=== PATIENT | female | born 1940 | race Caucasian/White ===

== ENCOUNTER 2021-08-10 18:21 | Inpatient (IN) | payer MEDICARE, BC ==
[2021-08-10] MEDS ORDERED: Calcium Carbonate 500 MG ChewTAB PO PRN (20:21)
[2021-08-10] MEDS ORDERED: Dextrose 50% Abboject 50 ML SYRINGE SLOW IVP PRN (20:21)
[2021-08-10] MEDS ORDERED: Ondansetron PF 4 MG/2 ML Vial IVP PRN (20:21)
[2021-08-10] MEDS ORDERED: Dextrose 5% in Water 1,000 ML IV PRN (20:21)
[2021-08-10] MEDS ORDERED: Atropine Sulfate 0.4 mg/1 ml Vial IVP PRN (20:28)
[2021-08-10 21:11] VITALS: BMI 21.4
[2021-08-10 21:15] LABS: Lactic Acid 1.4 mmol/L (0.5-2.2)
[2021-08-10 21:40] LABS: CKMB 1.5 ng/mL (0-6.6)
[2021-08-10] MEDS ORDERED: Mirtazapine 15 MG TAB PO SCH (22:00)
[2021-08-10] MEDS ORDERED: Atorvastatin Calcium 40 MG TAB PO SCH (22:00)
[2021-08-10] MEDS ORDERED: Sodium Chloride 0.9% 1,000 ML IV SCH (22:00)
[2021-08-10] MEDS: HumaLOG 300 UNITS/3 ML VIAL SC PRN (22:30)
[2021-08-11 04:35] LABS: #Monocytes 1.3 10x3/uL (0.0-1.1); #Neutrophils 8.6 10x3/uL (1.5-8.4); %Basophils 0.2 % (0.0-2.0); %Eosinophils 0.4 % (0.0-6.0); %Lymphocytes 12.4 % (18.0-47.0); %Neutrophils 75.6 % (40.0-75.0); Hemoglobin 9.9 g/dL (12.0-15.5); Mean Corpuscular HGB CONC 32.6 g/dL (32.0-36.0); Mean Corpuscular Hemoglobin 27.3 pg (27.0-33.0); Mean Platelet Volume 9.5 fl (7.4-10.4); Platelet Count 302 10x3/uL (150-450); RBC Distribution Width 13.7 % (11.5-14.5); Red Blood Cell (RBC) Count 3.62 10x6/uL (3.90-5.03); White Blood Cell (WBC) Count 11.4 10x3/uL (3.5-10.5)
[2021-08-11 04:41] LABS: Anion Gap 14 mmol/L (10-20); BUN (Urea Nitrogen) 10 mg/dL (9.8-20.1); Calc. Creatinine Clearance 54 mL/min (70-130); Calcium 8.6 mg/dL (7.8-10.44); Carbon Dioxide 23 mmol/L (23-31); Chloride 102 mmol/L (98-107); Glucose 133 mg/dL (83-110); Potassium 3.7 mmol/L (3.5-5.1); Sodium 135 mmol/L (136-145)
[2021-08-11 05:03] LABS: CKMB 1.3 ng/mL (0-6.6)
[2021-08-11] MEDS ORDERED: Levothyroxine Sodium 50 MCG TAB PO SCH (06:00)
[2021-08-11] MEDS: Mometasone/Formoterol 200/5 60 PUFF INH SCH ×2 (06:35→20:40)
[2021-08-11] MEDS ORDERED: metFORMIN 500 MG TAB PO SCH (08:00)
[2021-08-11] MEDS ORDERED: Polyethylene Glycol 3350 17 GM Packet PO SCH (09:00)
[2021-08-11] MEDS: Enoxaparin Sodium 40 MG/0.4 ML SYRINGE SC SCH (09:31)
[2021-08-11] MEDS: Aspirin 81 mg Enteric Coated Tablet PO SCH (09:32)
[2021-08-11] MEDS: Sotalol HCl 80 MG TAB PO SCH ×2 (09:32→20:20)
[2021-08-11] MEDS: Polyethylene Glycol 3350 17 GM Packet PO SCH (09:33)
[2021-08-11] MEDS: Pioglitazone HCl 15 MG TAB PO SCH (09:33)
[2021-08-11] MEDS ORDERED: Potassium Chloride 20 MEQ TAB PO SCH (12:00)
[2021-08-11 12:50] LABS: Iron 24 ug/dL (50-170); Iron Binding Capacity, Total 323 mcg/dL (265-497)
[2021-08-11 13:38] LABS: Ferritin 84.87 ng/mL (10-291); Free T4 (Free Thyroxine) 1.07 ng/dL (0.70-1.48)
[2021-08-11] MEDS ORDERED: Iron Sucrose Complex 100 MG in Sodium Chloride 0.9% 100 ML IVPB SCH (14:30)
[2021-08-11] MEDS ORDERED: Iron, Sodium Ferric Gluconate 125 MG in Sodium Chloride 0.9% 100 ML IVPB SCH (14:45)
[2021-08-11] MEDS: Atorvastatin Calcium 40 MG TAB PO SCH (20:20)
[2021-08-11 20:58] LABS: T4 7.2 ug/dL (4.87-11.72)
[2021-08-11] MEDS ORDERED: Mirtazapine 15 MG TAB PO SCH ×2 (21:00)
[2021-08-11] MEDS ORDERED: Atropine Sulfate 0.4 mg/1 ml Vial IVP SCH (21:00)
[2021-08-12 05:54] LABS: Anion Gap 15 mmol/L (10-20); BUN (Urea Nitrogen) 11 mg/dL (9.8-20.1); Calc. Creatinine Clearance 53 mL/min (70-130); Calcium 8.5 mg/dL (7.8-10.44); Carbon Dioxide 21 mmol/L (23-31); Chloride 104 mmol/L (98-107); Glucose 150 mg/dL (83-110); Potassium 4.7 mmol/L (3.5-5.1); Sodium 135 mmol/L (136-145)
[2021-08-12] MEDS ORDERED: Levothyroxine Sodium 50 MCG TAB PO SCH (06:00)
[2021-08-12] MEDS: Mometasone/Formoterol 200/5 60 PUFF INH SCH ×2 (06:02→19:20)
[2021-08-12] MEDS ORDERED: methylPREDNISolone Sod Succ 40 MG VIAL IVP SCH (09:00)
[2021-08-12] MEDS: Aspirin 81 mg Enteric Coated Tablet PO SCH (09:16)
[2021-08-12] MEDS: Sotalol HCl 80 MG TAB PO SCH (09:17)
[2021-08-12] MEDS: Pioglitazone HCl 15 MG TAB PO SCH (09:20)
[2021-08-12] MEDS: Polyethylene Glycol 3350 17 GM Packet PO SCH (09:31)
[2021-08-12] MEDS: Enoxaparin Sodium 40 MG/0.4 ML SYRINGE SC SCH (09:38)
[2021-08-12 12:06] LABS: #Basophils 0.1 10x3/uL (0.0-0.2); #Monocytes 0.9 10x3/uL (0.0-1.1); %Basophils 0.4 % (0.0-2.0); %Eosinophils 0.2 % (0.0-6.0); %Monocytes 6.7 % (0.0-10.0); %Neutrophils 78.1 % (40.0-75.0); Hemoglobin 11.4 g/dL (12.0-15.5); Mean Corpuscular HGB CONC 31.9 g/dL (32.0-36.0); Mean Corpuscular Hemoglobin 27.4 pg (27.0-33.0); Mean Corpuscular Volume 85.8 fl (81.6-98.3); Mean Platelet Volume 10.4 fl (7.4-10.4); Platelet Count 379 10x3/uL (150-450); RBC Distribution Width 14.3 % (11.5-14.5); Red Blood Cell (RBC) Count 4.16 10x6/uL (3.90-5.03); White Blood Cell (WBC) Count 12.8 10x3/uL (3.5-10.5)
[2021-08-12 12:16] LABS: INR-International Normal Ratio 1.1; PTT 23.9 sec (22.0-33.0)
[2021-08-12 12:29] LABS: ALT (SGPT) 93 U/L (8-55); AST (SGOT) 73 U/L (5-34); Albumin 3.6 g/dL (3.4-4.8); Alkaline Phosphatase 174 U/L (40-110); Anion Gap 18 mmol/L (10-20); BUN (Urea Nitrogen) 12 mg/dL (9.8-20.1); Bilirubin, Total 0.8 mg/dL (0.2-1.2); Calc. Creatinine Clearance 50 mL/min (70-130); Calcium 9.5 mg/dL (7.8-10.44); Carbon Dioxide 20 mmol/L (23-31); Chloride 102 mmol/L (98-107); Globulin 3.3 g/dL (2.4-3.5); Glucose 192 mg/dL (83-110); Magnesium 1.7 mg/dL (1.6-2.6); Phosphorus 3.6 mg/dL (2.3-4.7); Potassium 4.7 mmol/L (3.5-5.1); Protein, Total 6.9 g/dL (5.8-8.1); Sodium 135 mmol/L (136-145)
[2021-08-12 14:25] LABS: Magnesium 1.6 mg/dL (1.6-2.6)
[2021-08-12] MEDS ORDERED: Magnesium 2 GM/50 ML 2 GM in Premix Bag 1 BAG IVPB SCH (18:30)
[2021-08-12 19:22] LABS: CKMB 2.3 ng/mL (0-6.6); Troponin I 0.012 ng/mL (< 0.028)
[2021-08-12] MEDS: Atorvastatin Calcium 40 MG TAB PO SCH (20:39)
[2021-08-12] MEDS ORDERED: Benzonatate 100 MG CAP PO SCH (20:45)
[2021-08-12] MEDS: Acetaminophen 325 MG TAB PO PRN (21:25)
[2021-08-13 01:00] LABS: CKMB 2.6 ng/mL (0-6.6); Troponin I 0.014 ng/mL (< 0.028)
[2021-08-13 06:20] LABS: Magnesium 2.1 mg/dL (1.6-2.6)
[2021-08-13] MEDS: Mometasone/Formoterol 200/5 60 PUFF INH SCH ×2 (06:44→19:20)
[2021-08-13 07:53] LABS: CKMB 2.7 ng/mL (0-6.6); Troponin I 0.013 ng/mL (< 0.028)
[2021-08-13] MEDS ORDERED: Carvedilol 3.125 MG TAB PO SCH ×3 (09:45→17:00)
[2021-08-13 10:22] LABS: Anion Gap 22 mmol/L (10-20); BUN (Urea Nitrogen) 13 mg/dL (9.8-20.1); Calc. Creatinine Clearance 63 mL/min (70-130); Calcium 8.7 mg/dL (7.8-10.44); Carbon Dioxide 14 mmol/L (23-31); Chloride 100 mmol/L (98-107); Glucose 175 mg/dL (83-110); Magnesium 2.6 mg/dL (1.6-2.6); Potassium 4.2 mmol/L (3.5-5.1); Sodium 132 mmol/L (136-145)
[2021-08-13] MEDS: Enoxaparin Sodium 40 MG/0.4 ML SYRINGE SC SCH (10:28)
[2021-08-13] MEDS: Aspirin 81 mg Enteric Coated Tablet PO SCH ×2 (10:28→12:26)
[2021-08-13] MEDS: Pioglitazone HCl 15 MG TAB PO SCH ×2 (10:28→12:26)
[2021-08-13] MEDS: Polyethylene Glycol 3350 17 GM Packet PO SCH (12:22)
[2021-08-13] MEDS: Acetaminophen 325 MG TAB PO PRN ×2 (14:00→20:52)
[2021-08-13] MEDS ORDERED: Benzonatate 100 MG CAP PO PRN (19:48)
[2021-08-13] MEDS: Carvedilol 3.125 MG TAB PO SCH (20:53)
[2021-08-13] MEDS: Atorvastatin Calcium 40 MG TAB PO SCH (20:53)
[2021-08-14] MEDS: Carvedilol 3.125 MG TAB PO SCH (06:33)
[2021-08-14] MEDS: Aspirin 81 mg Enteric Coated Tablet PO SCH (06:33)
[2021-08-14] MEDS: Mometasone/Formoterol 200/5 60 PUFF INH SCH ×2 (07:05→19:12)
[2021-08-14] MEDS ORDERED: Heparin 10,000 UNITS/ 10 ML VIAL ONE (08:22)
[2021-08-14] MEDS ORDERED: Nitroglycerin 50 MG/250 ML BOT 250 ML ONE (08:22)
[2021-08-14] MEDS ORDERED: Adenosine 6 MG/2 ML VIAL ONE (08:22)
[2021-08-14] MEDS ORDERED: Sodium Chloride 0.9% 1,000 ML ONE (08:23)
[2021-08-14] MEDS ORDERED: Lidocaine 1% (PF) 30 ML VIAL ONE (10:19)
[2021-08-14] MEDS ORDERED: Fentanyl 100 MCG/2 ML VIAL ONE (10:24)
[2021-08-14] MEDS ORDERED: Midazolam HCl 2 mg/2 ml Vial ONE (10:25)
[2021-08-14] MEDS: Enoxaparin Sodium 40 MG/0.4 ML SYRINGE SC SCH (10:28)
[2021-08-14] MEDS ORDERED: Metoprolol Tartrate 5 MG/5 ML VIAL ONE ×2 (10:31→11:52)
[2021-08-14] MEDS: Polyethylene Glycol 3350 17 GM Packet PO SCH (10:37)
[2021-08-14] MEDS: Pioglitazone HCl 15 MG TAB PO SCH (10:37)
[2021-08-14] MEDS ORDERED: Sodium Chloride 0.9% 200 ML IV PRN (10:46)
[2021-08-14] MEDS ORDERED: Nitroglycerin 0.4 MG TAB (25 Tab Bottle) SL PRN (10:46)
[2021-08-14] MEDS ORDERED: Acetaminophen/Codeine 30-300mg Tablet PO PRN ×3 (10:46→10:55)
[2021-08-14] MEDS: Acetaminophen/Codeine 30-300mg Tablet PO PRN ×2 (13:30→20:55)
[2021-08-14] MEDS ORDERED: Carvedilol 6.25 MG TAB PO SCH (14:00)
[2021-08-14] MEDS: Benzonatate 100 MG CAP PO SCH ×2 (18:00→22:42)
[2021-08-14] MEDS: Atorvastatin Calcium 40 MG TAB PO SCH (20:57)
[2021-08-14] MEDS: Carvedilol 6.25 MG TAB PO SCH (20:57)
[2021-08-15 05:55] LABS: Hemoglobin 11.3 g/dL (12.0-15.5); Mean Corpuscular Hemoglobin 27.2 pg (27.0-33.0); Mean Corpuscular Volume 84.9 fl (81.6-98.3); Mean Platelet Volume 9.2 fl (7.4-10.4); Platelet Count 361 10x3/uL (150-450); RBC Distribution Width 14.5 % (11.5-14.5); Red Blood Cell (RBC) Count 4.16 10x6/uL (3.90-5.03); White Blood Cell (WBC) Count 8.4 10x3/uL (3.5-10.5)
[2021-08-15 06:05] LABS: Anion Gap 14 mmol/L (10-20); BUN (Urea Nitrogen) 15 mg/dL (9.8-20.1); Calc. Creatinine Clearance 53 mL/min (70-130); Calcium 9.1 mg/dL (7.8-10.44); Carbon Dioxide 26 mmol/L (23-31); Chloride 101 mmol/L (98-107); Glucose 147 mg/dL (83-110); Magnesium 1.7 mg/dL (1.6-2.6); Potassium 4.1 mmol/L (3.5-5.1); Sodium 137 mmol/L (136-145)
[2021-08-15] MEDS: Aspirin 81 mg Enteric Coated Tablet PO SCH (06:26)
[2021-08-15] MEDS: Carvedilol 6.25 MG TAB PO SCH (06:26)
[2021-08-15] MEDS: Benzonatate 100 MG CAP PO SCH ×3 (06:26→21:57)
[2021-08-15] MEDS: Mometasone/Formoterol 200/5 60 PUFF INH SCH ×2 (06:45→18:50)
[2021-08-15] MEDS: Polyethylene Glycol 3350 17 GM Packet PO SCH (07:43)
[2021-08-15] MEDS: Enoxaparin Sodium 40 MG/0.4 ML SYRINGE SC SCH (07:43)
[2021-08-15] MEDS ORDERED: Gentamicin 80 MG/2 ML VIAL ONE ×2 (10:06→11:14)
[2021-08-15] MEDS ORDERED: Fentanyl 100 MCG/2 ML VIAL ONE (10:06)
[2021-08-15] MEDS ORDERED: CEFAZOLIN 1 GM VIAL ONE ×2 (10:07)
[2021-08-15] MEDS ORDERED: Midazolam HCl 2 mg/2 ml Vial ONE (10:08)
[2021-08-15] MEDS ORDERED: Lidocaine 1% (PF) 30 ML VIAL ONE (10:42)
[2021-08-15] MEDS ORDERED: Magnesium 2 GM/50 ML 2 GM in Premix Bag 1 BAG IVPB SCH (11:00)
[2021-08-15] MEDS ORDERED: Erythromycin Base 250 MG TAB PO SCH (13:00)
[2021-08-15] MEDS: Carvedilol 12.5 MG TAB PO SCH (16:26)
[2021-08-15] MEDS: Acetaminophen/Codeine 30-300mg Tablet PO PRN ×2 (18:02→22:15)
[2021-08-15] MEDS: Atorvastatin Calcium 40 MG TAB PO SCH (21:57)
[2021-08-16 05:47] LABS: Anion Gap 14 mmol/L (10-20); BUN (Urea Nitrogen) 12 mg/dL (9.8-20.1); Calc. Creatinine Clearance 55 mL/min (70-130); Carbon Dioxide 25 mmol/L (23-31); Chloride 101 mmol/L (98-107); Glucose 146 mg/dL (83-110); Sodium 136 mmol/L (136-145)
[2021-08-16] MEDS: Mometasone/Formoterol 200/5 60 PUFF INH SCH ×2 (06:40→19:03)
[2021-08-16] MEDS ORDERED: Azithromycin 250 MG TAB PO SCH (09:00)
[2021-08-16] MEDS: Aspirin 81 mg Enteric Coated Tablet PO SCH (09:19)
[2021-08-16] MEDS: Carvedilol 12.5 MG TAB PO SCH (09:19)
[2021-08-16] MEDS: Polyethylene Glycol 3350 17 GM Packet PO SCH (09:19)
[2021-08-16] MEDS: Benzonatate 100 MG CAP PO SCH ×3 (09:20→21:38)
[2021-08-16] MEDS: Enoxaparin Sodium 40 MG/0.4 ML SYRINGE SC SCH (09:20)
[2021-08-16] MEDS ORDERED: Metoprolol Tartrate 5 MG/5 ML VIAL IVP SCH ×2 (10:00→15:45)
[2021-08-16] MEDS ORDERED: Lisinopril 5 MG TAB PO SCH (10:00)
[2021-08-16] MEDS ORDERED: Ondansetron PF 4 MG/2 ML Vial IVP PRN (10:27)
[2021-08-16] MEDS: Senokot S 8.6-50 MG TAB PO PRN (11:36)
[2021-08-16] MEDS ORDERED: Fleet Enema 133 ML BOT PR SCH (13:00)
[2021-08-16] MEDS ORDERED: Fleet Enema 133 ML BOT ONE ×2 (13:22)
[2021-08-16] MEDS: Clindamycin 150 MG CAP PO SCH ×2 (13:27→15:45)
[2021-08-16] MEDS ORDERED: Digoxin 0.5 MG/2 ML AMP SLOW IVP SCH ×3 (17:00→21:30)
[2021-08-16] MEDS: Carvedilol 25 MG TAB PO SCH (18:11)
[2021-08-16] MEDS: Atorvastatin Calcium 40 MG TAB PO SCH (21:37)
[2021-08-17] MEDS: Levothyroxine Sodium 25 MCG TAB PO SCH (05:52)
[2021-08-17] MEDS: Mometasone/Formoterol 200/5 60 PUFF INH SCH ×2 (06:45→19:13)
[2021-08-17] MEDS ORDERED: Lidocaine 2% MPF 10 ML AMP (For Epidural Use) ONE (09:24)
[2021-08-17] MEDS ORDERED: PROPOFOL 20 ML ONE (09:24)
[2021-08-17] MEDS ORDERED: PHENYLEPHRINE-NS 100 MCG/ML 10 ML SYRINGE ONE (09:47)
[2021-08-17] MEDS: Polyethylene Glycol 3350 17 GM Packet PO SCH ×2 (10:20→11:25)
[2021-08-17] MEDS: Enoxaparin Sodium 40 MG/0.4 ML SYRINGE SC SCH (10:20)
[2021-08-17] MEDS: Carvedilol 25 MG TAB PO SCH ×2 (10:21→16:15)
[2021-08-17] MEDS: Lisinopril 5 MG TAB PO SCH (10:21)
[2021-08-17] MEDS: Benzonatate 100 MG CAP PO SCH ×3 (10:21→21:10)
[2021-08-17] MEDS: Aspirin 81 mg Enteric Coated Tablet PO SCH (10:21)
[2021-08-17] MEDS: HumaLOG 300 UNITS/3 ML VIAL SC PRN (18:02)
[2021-08-17] MEDS: Atorvastatin Calcium 40 MG TAB PO SCH (21:10)
[2021-08-18] MEDS: Levothyroxine Sodium 25 MCG TAB PO SCH (05:31)
[2021-08-18] MEDS: Mometasone/Formoterol 200/5 60 PUFF INH SCH ×2 (08:12→18:57)
[2021-08-18] MEDS: Benzonatate 100 MG CAP PO SCH ×2 (08:51→08:59)
[2021-08-18] MEDS: Lisinopril 5 MG TAB PO SCH (08:51)
[2021-08-18] MEDS: Aspirin 81 mg Enteric Coated Tablet PO SCH (08:52)
[2021-08-18] MEDS: Carvedilol 25 MG TAB PO SCH ×2 (08:52→16:02)
[2021-08-18] MEDS: Polyethylene Glycol 3350 17 GM Packet PO SCH (08:53)
[2021-08-18] MEDS: Enoxaparin Sodium 40 MG/0.4 ML SYRINGE SC SCH (08:53)
[2021-08-18] MEDS: HumaLOG 300 UNITS/3 ML VIAL SC PRN (12:07)
[2021-08-18] MEDS ORDERED: EPOETIN ALFA-EPBX (NON-ESRD) 10,000 UNIT/ML VIAL SC SCH (13:00)
[2021-08-18] MEDS: Clindamycin 150 MG CAP PO SCH (16:02)
[2021-08-18] MEDS: Atorvastatin Calcium 40 MG TAB PO SCH (19:35)
[2021-08-18] MEDS ORDERED: Donepezil HCl 5 MG TAB PO SCH (21:00)
[2021-08-18] MEDS: Senokot S 8.6-50 MG TAB PO PRN (22:03)
[2021-08-19] MEDS: Clindamycin 150 MG CAP PO SCH ×3 (00:30→14:51)
[2021-08-19] MEDS: Senokot S 8.6-50 MG TAB PO PRN (06:08)
[2021-08-19] MEDS: Levothyroxine Sodium 25 MCG TAB PO SCH (06:08)
[2021-08-19] MEDS ORDERED: Ferrous Gluconate 324 MG TAB PO SCH (08:00)
[2021-08-19] MEDS: Mometasone/Formoterol 200/5 60 PUFF INH SCH ×2 (08:54→19:26)
[2021-08-19] MEDS: Carvedilol 25 MG TAB PO SCH ×2 (09:15→19:00)
[2021-08-19] MEDS: Aspirin 81 mg Enteric Coated Tablet PO SCH (09:15)
[2021-08-19] MEDS: Enoxaparin Sodium 40 MG/0.4 ML SYRINGE SC SCH (09:16)
[2021-08-19] MEDS: Polyethylene Glycol 3350 17 GM Packet PO SCH (09:16)
[2021-08-19] MEDS: Lisinopril 5 MG TAB PO SCH (09:16)
[2021-08-19] MEDS: HumaLOG 300 UNITS/3 ML VIAL SC PRN (12:21)
[2021-08-19 13:26] LABS: Bilirubin Neg (Negative); Blood, Urine 250 (Negative); Clarity Slightly Cloudy (Clear); Glucose, Urine (Dipstick) >=1000 mg/dL (Negative); Ketone, Urine 5 mg/dL (Negative); Leukocyte 25 (Negative); Nitrite Negative (Negative); Protein, Urine (Dipstick) 30 mg/dl (Neg-Trace); Urobilinogen Normal mg/dL (Less than 2)
[2021-08-19 13:28] LABS: Urine Culture Reflex No No
[2021-08-19 13:55] LABS: Bacteria/HPF None Seen HPF (None Seen); RBC/HPF Greater than 50 HPF (0-3); Squamous Epithelial 0-3 HPF (0-3); WBC/HPF 0-3 HPF (0-3)
[2021-08-19 15:23] LABS: ALT (SGPT) 49 U/L (8-55); AST (SGOT) 39 U/L (5-34); Albumin 3.2 g/dL (3.4-4.8); Alkaline Phosphatase 123 U/L (40-110); Anion Gap 13 mmol/L (10-20); BUN (Urea Nitrogen) 10 mg/dL (9.8-20.1); Bilirubin, Total 0.6 mg/dL (0.2-1.2); Calc. Creatinine Clearance 67 mL/min (70-130); Calcium 8.4 mg/dL (7.8-10.44); Carbon Dioxide 29 mmol/L (23-31); Chloride 94 mmol/L (98-107); Globulin 2.6 g/dL (2.4-3.5); Glucose 130 mg/dL (83-110); Magnesium 1.7 mg/dL (1.6-2.6); Potassium 3.2 mmol/L (3.5-5.1); Protein, Total 5.8 g/dL (5.8-8.1); Sodium 133 mmol/L (136-145)
[2021-08-19 15:51] LABS: Phosphorus 1.9 mg/dL (2.3-4.7)
[2021-08-19] MEDS ORDERED: Potassium Chloride 20 MEQ in Premix Bag 1 BAG IVPB SCH ×2 (18:15→23:30)
[2021-08-19] MEDS: Clindamycin/D5W 600 MG in Premix Bag 1 BAG IVPB SCH (19:29)
[2021-08-19] MEDS: Sodium Chloride 0.9% 1,000 ML IV SCH (19:30)
[2021-08-19] MEDS: Atorvastatin Calcium 40 MG TAB PO SCH (20:08)
[2021-08-19] MEDS ORDERED: Potassium Phosphate 15 MMOL in Sodium Chloride 0.9% 250 ML 250 ML IVPB SCH (21:00)
[2021-08-20] MEDS: Clindamycin/D5W 600 MG in Premix Bag 1 BAG IVPB SCH ×3 (01:17→13:46)
[2021-08-20 04:31] LABS: Anion Gap 14 mmol/L (10-20); BUN (Urea Nitrogen) 6 mg/dL (9.8-20.1); Calc. Creatinine Clearance 68 mL/min (70-130); Calcium 8.3 mg/dL (7.8-10.44); Carbon Dioxide 29 mmol/L (23-31); Chloride 94 mmol/L (98-107); Glucose 131 mg/dL (83-110); Magnesium 1.7 mg/dL (1.6-2.6); Phosphorus 2.7 mg/dL (2.3-4.7); Potassium 3.1 mmol/L (3.5-5.1); Sodium 134 mmol/L (136-145)
[2021-08-20] MEDS: Levothyroxine Sodium 25 MCG TAB PO SCH (05:14)
[2021-08-20] MEDS: Mometasone/Formoterol 200/5 60 PUFF INH SCH ×2 (06:45→19:20)
[2021-08-20] MEDS ORDERED: Lorazepam 2 MG/ML VIAL SLOW IVP PRN (07:19)
[2021-08-20] MEDS ORDERED: Potassium Chloride 20 MEQ in Premix Bag 1 BAG IVPB SCH ×2 (08:00→13:30)
[2021-08-20] MEDS ORDERED: Magnesium 2 GM/50 ML 2 GM in Premix Bag 1 BAG IVPB SCH (08:00)
[2021-08-20] MEDS ORDERED: Lisinopril 10 MG TAB PO SCH (09:30)
[2021-08-20] MEDS: Polyethylene Glycol 3350 17 GM Packet PO SCH (10:43)
[2021-08-20] MEDS: Enoxaparin Sodium 40 MG/0.4 ML SYRINGE SC SCH (10:43)
[2021-08-20] MEDS: Carvedilol 25 MG TAB PO SCH ×2 (10:43→17:41)
[2021-08-20] MEDS: Pantoprazole 40 MG VIAL IVP SCH (10:46)
[2021-08-20] MEDS: Lisinopril 5 MG TAB PO SCH (11:43)
[2021-08-20] MEDS: Aspirin 81 mg Enteric Coated Tablet PO SCH (11:44)
[2021-08-20] MEDS: Lisinopril 10 MG TAB PO SCH (20:29)
[2021-08-20] MEDS: Atorvastatin Calcium 40 MG TAB PO SCH (20:29)
[2021-08-21] MEDS: Sodium Chloride 0.9% 1,000 ML IV SCH ×3 (00:45→21:06)
[2021-08-21] MEDS: Clindamycin/D5W 600 MG in Premix Bag 1 BAG IVPB SCH ×5 (00:46→21:07)
[2021-08-21] MEDS: Mometasone/Formoterol 200/5 60 PUFF INH SCH ×2 (06:34→19:04)
[2021-08-21] MEDS: Levothyroxine Sodium 25 MCG TAB PO SCH (06:52)
[2021-08-21 08:24] LABS: #Eosinphils 0.2 10x3/uL (0.0-0.5); #Monocytes 1.1 10x3/uL (0.0-1.1); #Neutrophils 8.1 10x3/uL (1.5-8.4); %Basophils 0.3 % (0.0-2.0); %Eosinophils 1.9 % (0.0-6.0); %Lymphocytes 11.2 % (18.0-47.0); %Monocytes 10.6 % (0.0-10.0); %Neutrophils 75.4 % (40.0-75.0); Hemoglobin 11.7 g/dL (12.0-15.5); Mean Corpuscular HGB CONC 32.3 g/dL (32.0-36.0); Mean Corpuscular Hemoglobin 27.4 pg (27.0-33.0); Mean Corpuscular Volume 84.8 fl (81.6-98.3); Mean Platelet Volume 9.5 fl (7.4-10.4); Platelet Count 248 10x3/uL (150-450); RBC Distribution Width 14.7 % (11.5-14.5); Red Blood Cell (RBC) Count 4.27 10x6/uL (3.90-5.03); White Blood Cell (WBC) Count 10.8 10x3/uL (3.5-10.5)
[2021-08-21 08:27] LABS: INR-International Normal Ratio 1.2; PTT 24.2 sec (22.0-33.0); Prothrombin Time 13.5 sec (9.5-12.1)
[2021-08-21 08:30] LABS: Anion Gap 15 mmol/L (10-20); BUN (Urea Nitrogen) 6 mg/dL (9.8-20.1); Calc. Creatinine Clearance 62 mL/min (70-130); Carbon Dioxide 26 mmol/L (23-31); Chloride 96 mmol/L (98-107); Glucose 118 mg/dL (83-110); Phosphorus 2.7 mg/dL (2.3-4.7); Sodium 134 mmol/L (136-145)
[2021-08-21 08:47] LABS: Potassium 2.9 mmol/L (3.5-5.1)
[2021-08-21] MEDS: Digoxin 0.125 MG TAB PO SCH (09:30)
[2021-08-21] MEDS: Enoxaparin Sodium 40 MG/0.4 ML SYRINGE SC SCH (09:30)
[2021-08-21] MEDS: Aspirin Chewable 81 MG TAB PO SCH (09:31)
[2021-08-21] MEDS: Polyethylene Glycol 3350 17 GM Packet PO SCH (09:31)
[2021-08-21] MEDS: Pantoprazole 40 MG VIAL IVP SCH (09:31)
[2021-08-21] MEDS: Carvedilol 25 MG TAB PO SCH ×2 (09:31→16:39)
[2021-08-21] MEDS: Lisinopril 10 MG TAB PO SCH ×2 (09:39→21:50)
[2021-08-21] MEDS: Potassium Chloride 20 MEQ in Premix Bag 1 BAG IVPB SCH ×4 (10:00→23:23)
[2021-08-21] MEDS ORDERED: Potassium Chloride 40 MEQ in Premix Bag 1 BAG IVPB SCH (10:00)
[2021-08-21] MEDS: Bisacodyl 10 MG SUPP PR SCH ×2 (10:00→21:51)
[2021-08-21] MEDS ORDERED: Chloraseptic Spray 180 ml Bottle PO PRN (14:17)
[2021-08-21 19:32] LABS: Anion Gap 15 mmol/L (10-20); BUN (Urea Nitrogen) 8 mg/dL (9.8-20.1); Calc. Creatinine Clearance 66 mL/min (70-130); Carbon Dioxide 25 mmol/L (23-31); Chloride 97 mmol/L (98-107); Glucose 126 mg/dL (83-110); Potassium 3.3 mmol/L (3.5-5.1); Sodium 134 mmol/L (136-145)
[2021-08-21] MEDS: Atorvastatin Calcium 40 MG TAB PO SCH (21:49)
[2021-08-22] MEDS: Clindamycin/D5W 600 MG in Premix Bag 1 BAG IVPB SCH ×2 (01:15→06:42)
[2021-08-22] MEDS: Potassium Chloride 20 MEQ in Premix Bag 1 BAG IVPB SCH (01:40)
[2021-08-22 05:03] LABS: Anion Gap 13 mmol/L (10-20); BUN (Urea Nitrogen) 7 mg/dL (9.8-20.1); Calc. Creatinine Clearance 64 mL/min (70-130); Calcium 7.9 mg/dL (7.8-10.44); Carbon Dioxide 25 mmol/L (23-31); Chloride 100 mmol/L (98-107); Glucose 108 mg/dL (83-110); Magnesium 1.6 mg/dL (1.6-2.6); Potassium 3.6 mmol/L (3.5-5.1); Sodium 134 mmol/L (136-145)
[2021-08-22] MEDS: Mometasone/Formoterol 200/5 60 PUFF INH SCH ×2 (06:05→18:42)
[2021-08-22] MEDS: Levothyroxine Sodium 25 MCG TAB PO SCH (06:13)
[2021-08-22] MEDS ORDERED: Magnesium 2 GM/50 ML 2 GM in Sodium Chloride 0.9% 100 ML IVPB SCH (08:00)
[2021-08-22] MEDS: Carvedilol 25 MG TAB PO SCH ×2 (09:00→17:32)
[2021-08-22] MEDS: Digoxin 0.125 MG TAB PO SCH (09:10)
[2021-08-22] MEDS: Enoxaparin Sodium 40 MG/0.4 ML SYRINGE SC SCH (09:12)
[2021-08-22] MEDS: Pantoprazole 40 MG VIAL IVP SCH (09:12)
[2021-08-22] MEDS: Lisinopril 10 MG TAB PO SCH ×2 (09:15→21:00)
[2021-08-22] MEDS: Aspirin Chewable 81 MG TAB PO SCH (09:15)
[2021-08-22] MEDS: Bisacodyl 10 MG SUPP PR SCH ×3 (09:15→22:00)
[2021-08-22] MEDS: Polyethylene Glycol 3350 17 GM Packet PO SCH (09:18)
[2021-08-22] MEDS ORDERED: Potassium Chloride 10 MEQ in Premix Bag 1 BAG IVPB SCH (13:15)
[2021-08-22] MEDS: Sodium Chloride 0.9% 1,000 ML IV SCH ×2 (15:23→15:24)
[2021-08-22] MEDS: Atorvastatin Calcium 40 MG TAB PO SCH (21:00)
[2021-08-23] MEDS: Mometasone/Formoterol 200/5 60 PUFF INH SCH ×2 (06:08→18:55)
[2021-08-23] MEDS: Carvedilol 25 MG TAB PO SCH ×2 (06:15→17:08)
[2021-08-23] MEDS: Levothyroxine Sodium 25 MCG TAB PO SCH (06:15)
[2021-08-23] MEDS: Sodium Chloride 0.9% 1,000 ML IV SCH ×2 (06:20→17:55)
[2021-08-23] MEDS: Lisinopril 10 MG TAB PO SCH ×2 (09:14→21:35)
[2021-08-23] MEDS: Aspirin Chewable 81 MG TAB PO SCH (09:14)
[2021-08-23] MEDS: Pantoprazole 40 MG VIAL IVP SCH (09:14)
[2021-08-23] MEDS: Polyethylene Glycol 3350 17 GM Packet PO SCH (09:14)
[2021-08-23] MEDS: Digoxin 0.125 MG TAB PO SCH (09:14)
[2021-08-23] MEDS ORDERED: Pantoprazole 40 MG VIAL ONE (09:14)
[2021-08-23] MEDS: Enoxaparin Sodium 40 MG/0.4 ML SYRINGE SC SCH (09:14)
[2021-08-23] MEDS: Bisacodyl 10 MG SUPP PR SCH ×2 (09:15→21:36)
[2021-08-23] MEDS: hydrALAZINE 20 MG/ML VIAL SLOW IVP PRN (17:53)
[2021-08-23] MEDS: Atorvastatin Calcium 40 MG TAB PO SCH (21:36)
[2021-08-24] MEDS: hydrALAZINE 20 MG/ML VIAL SLOW IVP PRN (01:17)
[2021-08-24] MEDS: Levothyroxine Sodium 25 MCG TAB PO SCH (05:54)
[2021-08-24] MEDS: Mometasone/Formoterol 200/5 60 PUFF INH SCH ×2 (06:52→19:35)
[2021-08-24 07:51] LABS: Anion Gap 15 mmol/L (10-20); BUN (Urea Nitrogen) Less than 4 mg/dL (9.8-20.1); Calc. Creatinine Clearance 67 mL/min (70-130); Calcium 8.3 mg/dL (7.8-10.44); Carbon Dioxide 25 mmol/L (23-31); Chloride 100 mmol/L (98-107); Glucose 142 mg/dL (83-110); Magnesium 1.4 mg/dL (1.6-2.6); Sodium 137 mmol/L (136-145)
[2021-08-24 07:53] LABS: Potassium 2.6 mmol/L (3.5-5.1)
[2021-08-24] MEDS: Sodium Chloride 0.9% 1,000 ML IV SCH ×2 (07:58→16:28)
[2021-08-24] MEDS ORDERED: Potassium Chloride 40 MEQ in Premix Bag 1 BAG IVPB SCH (08:45)
[2021-08-24] MEDS: Polyethylene Glycol 3350 17 GM Packet PO SCH (09:27)
[2021-08-24] MEDS: Bisacodyl 10 MG SUPP PR SCH ×2 (09:27→20:12)
[2021-08-24] MEDS: Lisinopril 10 MG TAB PO SCH ×2 (09:27→20:11)
[2021-08-24] MEDS: Carvedilol 25 MG TAB PO SCH ×2 (09:27→16:28)
[2021-08-24] MEDS: Aspirin Chewable 81 MG TAB PO SCH (09:27)
[2021-08-24] MEDS: Enoxaparin Sodium 40 MG/0.4 ML SYRINGE SC SCH (09:27)
[2021-08-24] MEDS: Digoxin 0.125 MG TAB PO SCH (09:27)
[2021-08-24] MEDS: Potassium Chloride 20 MEQ in Premix Bag 1 BAG IVPB SCH ×2 (09:28→11:53)
[2021-08-24] MEDS: HumaLOG 300 UNITS/3 ML VIAL SC PRN ×3 (13:08→21:39)
[2021-08-24 13:15] LABS: Anion Gap 15 mmol/L (10-20); BUN (Urea Nitrogen) 4 mg/dL (9.8-20.1); Calc. Creatinine Clearance 61 mL/min (70-130); Calcium 8.1 mg/dL (7.8-10.44); Carbon Dioxide 21 mmol/L (23-31); Chloride 102 mmol/L (98-107); Glucose 236 mg/dL (83-110); Sodium 135 mmol/L (136-145)
[2021-08-24 13:25] LABS: Potassium 2.7 mmol/L (3.5-5.1)
[2021-08-24] MEDS ORDERED: Potassium Chloride 20 MEQ TAB PO SCH ×2 (14:15→19:00)
[2021-08-24 18:34] LABS: Potassium 2.9 mmol/L (3.5-5.1)
[2021-08-24] MEDS ORDERED: Dronedarone HCl 400 MG TAB PO SCH (19:00)
[2021-08-24] MEDS: Apixaban 2.5 MG TAB PO SCH (20:11)
[2021-08-24] MEDS: Atorvastatin Calcium 40 MG TAB PO SCH (20:12)
[2021-08-25 04:42] LABS: Anion Gap 14 mmol/L (10-20); BUN (Urea Nitrogen) 4 mg/dL (9.8-20.1); Calc. Creatinine Clearance 68 mL/min (70-130); Calcium 8.1 mg/dL (7.8-10.44); Carbon Dioxide 21 mmol/L (23-31); Chloride 108 mmol/L (98-107); Glucose 101 mg/dL (83-110); Magnesium 1.6 mg/dL (1.6-2.6); Potassium 3.5 mmol/L (3.5-5.1); Sodium 139 mmol/L (136-145)
[2021-08-25] MEDS: Levothyroxine Sodium 25 MCG TAB PO SCH (05:02)
[2021-08-25] MEDS: Mometasone/Formoterol 200/5 60 PUFF INH SCH (06:05)
[2021-08-25] MEDS ORDERED: Dronedarone HCl 400 MG TAB PO SCH (08:00)
[2021-08-25] MEDS ORDERED: Magnesium Sulfate 3 GM in Sodium Chloride 0.9% 100 ML IVPB SCH (09:00)
[2021-08-25] MEDS: Bisacodyl 10 MG SUPP PR SCH (09:26)
[2021-08-25] MEDS: Carvedilol 25 MG TAB PO SCH (09:26)
[2021-08-25] MEDS: Polyethylene Glycol 3350 17 GM Packet PO SCH (09:26)
[2021-08-25] MEDS: Aspirin Chewable 81 MG TAB PO SCH (09:26)
[2021-08-25] MEDS: Lisinopril 10 MG TAB PO SCH (09:27)
[2021-08-25] MEDS: Sodium Chloride 0.9% 1,000 ML IV SCH (09:27)
[2021-08-25] MEDS: Digoxin 0.125 MG TAB PO SCH (09:27)
[2021-08-25] MEDS: Apixaban 2.5 MG TAB PO SCH (09:27)
[2021-08-25] MEDS ORDERED: Potassium Chloride 20 MEQ TAB PO SCH (10:30)
[2021-08-25] MEDS: HumaLOG 300 UNITS/3 ML VIAL SC PRN (12:10)
[2021-08-25 12:19] VITALS: BP 122/80; TEMP 97.1
== END 2021-08-25 15:21 | disposition hospice, inpatient (51) | DRG 243 ==
LOC: CSHTELE 19:43 → INTOOBSV 19:43 → OBSVTOIN 08-12 11:08
PROVIDERS: ADMIT Student in an Organized Health Care Education/Training Program; ATTEND Internal Medicine
PROC: 4A023N7 Measurement of Cardiac Sampling and Pressure, Left Heart, Percutaneous Approach (ICD-10-PCS; 2021-08-14)
PROC: B2111ZZ Fluoroscopy of Multiple Coronary Arteries using Low Osmolar Contrast (ICD-10-PCS; 2021-08-14)
PROC: B2151ZZ Fluoroscopy of Left Heart using Low Osmolar Contrast (ICD-10-PCS; 2021-08-14)
PROC: 0JH606Z Insertion of Pacemaker, Dual Chamber into Chest Subcutaneous Tissue and Fascia, Open Approach (ICD-10-PCS; principal; 2021-08-15)
PROC: 02HK3JZ Insertion of Pacemaker Lead into Right Ventricle, Percutaneous Approach (ICD-10-PCS; 2021-08-15)
PROC: 02H63JZ Insertion of Pacemaker Lead into Right Atrium, Percutaneous Approach (ICD-10-PCS; 2021-08-15)
PROC: 0DJD8ZZ Inspection of Lower Intestinal Tract, Via Natural or Artificial Opening Endoscopic (ICD-10-PCS; 2021-08-17)
PROC: 0D9670Z Drainage of Stomach with Drainage Device, Via Natural or Artificial Opening (ICD-10-PCS; 2021-08-22)
PROC: 3E0G76Z Introduction of Nutritional Substance into Upper GI, Via Natural or Artificial Opening (ICD-10-PCS; 2021-08-22)
DX: I49.5 Sick sinus syndrome (principal); E87.2 Acidosis; I47.2 Ventricular tachycardia; K56.7 Ileus, unspecified; K59.39 Other megacolon; N17.9 Acute kidney failure, unspecified; I13.0 Hypertensive heart and chronic kidney disease with heart failure and stage 1 through stage 4 chronic kidney disease, or unspecified chronic kidney disease; E87.1 Hypo-osmolality and hyponatremia; I50.22 Chronic systolic (congestive) heart failure; I48.0 Paroxysmal atrial fibrillation; E78.2 Mixed hyperlipidemia; E03.9 Hypothyroidism, unspecified; D64.9 Anemia, unspecified; R33.9 Retention of urine, unspecified; K59.81 Ogilvie syndrome; E87.6 Hypokalemia; R31.9 Hematuria, unspecified; F03.90 Unspecified dementia, unspecified severity, without behavioral disturbance, psychotic disturbance, mood disturbance, and anxiety; J20.9 Acute bronchitis, unspecified; E86.0 Dehydration; I25.10 Atherosclerotic heart disease of native coronary artery without angina pectoris; K64.8 Other hemorrhoids; E11.65 Type 2 diabetes mellitus with hyperglycemia; R79.89 Other specified abnormal findings of blood chemistry; N18.2 Chronic kidney disease, stage 2 (mild); E11.22 Type 2 diabetes mellitus with diabetic chronic kidney disease; E83.42 Hypomagnesemia; D63.1 Anemia in chronic kidney disease; Z66 Do not resuscitate; K56.41 Fecal impaction; Z51.5 Encounter for palliative care; Z88.0 Allergy status to penicillin; Z88.1 Allergy status to other antibiotic agents; Z85.038 Personal history of other malignant neoplasm of large intestine; Z90.49 Acquired absence of other specified parts of digestive tract; Z79.890 Hormone replacement therapy; Z79.82 Long term (current) use of aspirin; Z79.899 Other long term (current) drug therapy; Z79.84 Long term (current) use of oral hypoglycemic drugs; Z87.891 Personal history of nicotine dependence; Z79.891 Long term (current) use of opiate analgesic; Z90.710 Acquired absence of both cervix and uterus
CPT/HCPCS: 33208; 36415; 36416; 71045; 74018; 74177; 80048; 80053; 81001; 82550; 82553; 82728; 83540; 83550; 83605; 83630; 83735; 84100; 84436; 84439; 84443; 84481; 84484; 85025; 85027; 85610; 85730; 86850; 86900; 86901; 87045; 87046; 87086; 87324; 87427; 87449; 93005; 93010; 93306; 93458; 94640; 94664; 94760; 96372; 96374; 96375; 97139; 99152; 99153; C1760; C1785; C1898; C9113; G0378; J0153; J0360; J0461; J0690; J1160; J1580; J1644; J1650; J1815; J1956; J2001; J2060; J2250; J2405; J2704; J2916; J2920; J3010; J3475; J3480; J3490; J7050; J7620; Q5106